=== PATIENT | female | born 1945 | race Caucasian/White ===

== ENCOUNTER 2024-06-26 17:27 | Emergency (ER) | payer MEDICARE, SELFPAY ==
--- NOTE | ~2024-06-26 | CT_ITS ---
EXAMINATION: CT brain wo con DATE: 06/26/2024 18:24 INDICATION: headache, hypertension . TECHNIQUE: Computed tomography (CT) of the head was performed without intravenous contrast. The mA wa s adjusted according to patient size. Iterative reconstruction technique was employed. The dose-lengt h product was 605.33 mGy-cm. COMPARISON: None. FINDINGS: No acute intracranial hemorrhage or extra-axial fluid collection. No hydrocephalus, mass, or herniation. No acute ischemic infarct. Unremarkable dural venous sinus attenuation. No acute osseous abnormality. The aerated spaces are clear. Mild atrophy and moderate chronic white matter change. Atherosclerotic intracranial calcification. IMPRESSION: No acute intracranial process. Reviewed, dictated and finalized at location K.
--- NOTE | ~2024-06-26 | CT_ITS ---
EXAMINATION: CTA brain carotid DATE: 06/26/2024 20:29 INDICATION: dizziness TECHNIQUE: Computed tomographic angiography (CTA) of the head was performed with 100 mL Omnipaque-350 intravenous contrast. Automated exposure control and iterative reconstruction technique were employe d. The dose-length product was 1066.09 mGy-cm. Maximum intensity projection and volume rendered 3D-r econstructions were created by the technologist on a separate workstation. COMPARISON: CT brain, same date. FINDINGS: CTA HEAD: No large vessel occlusion, aneurysm, high flow vascular malformation, nidus or extravasation. Mild ca lcification in the bilateral cavernous carotids. Narrow caliber left SANDY, when compared to the right. Mildly hypoplastic left P1 segment versus mild stenosis. Patent cerebral veins. Symmetric parenchyma l enhancement CTA NECK: Aortic arch and proximal great vessels: Bovine arch anatomy. Mild arch calcifications. Right common carotid, carotid bifurcation, and internal carotid artery: No plaque.There is 0% stenosi s of the proximal right internal carotid artery relative to normal distal artery lumen diameter (NASC ET criteria). Left common carotid, carotid bifurcation, and internal carotid artery: No plaque.There is % stenosis of the proximal left internal carotid artery relative to normal distal artery lumen diameter (NASCET criteria). Vertebral arteries: No significant plaque or stenosis. Short segment beaded appearance of the distal left vertebral artery. Similar change also noted in the left although to a lesser extent. Other findings: None. IMPRESSION: No large vessel intracranial occlusion, high-grade intracranial stenosis, or aneurysm. No carotid or vertebral artery occlusion, dissection, or significant stenosis. Mild, short segment changes of fibromuscular dysplasia in the distal bilateral vertebral arteries. Reviewed, dictated and finalized at location K. IMPRESSION: No large vessel intracranial occlusion, high-grade intracranial stenosis, or an eurysm. No carotid or vertebral artery occlusion, dissection, or significant stenosis. Mild, short segment changes of fibromuscular dysplasia in the distal bilateral vertebral arteries.
--- NOTE | ~2024-06-26 | XR_ITS ---
EXAMINATION: XR chest 2V Exam Date/Time: 06/26/2024 18:16 CDT HISTORY: dizziness Comparison: 04/08/2019. RESULT: Lines, tubes, and devices: None. Lungs and pleura: Clear. Cardiomediastinal silhouette: Stable. Other: No acute osseous or upper abdominal finding. IMPRESSION: No acute cardiopulmonary process. Reviewed, dictated and finalized at location K.
[2024-06-26 17:35] VITALS: BP 195/75; PULSE 68; RESP 21; TEMP 37; O2SAT 97
--- NOTE | 2024-06-26 17:39 | ECG_ITS ---
Test Date: 2024-06-26 17:51:50 Measurements Intervals Plover Rate: 56 P: 54 NH: 157 QRS: 23 QRSD: 74 T: 63 QT: 429 QTc: 415 Interpretive Statements SINUS BRADYCARDIA OTHERWISE NORMAL ECG No previous ECG available for comparison Electronically Signed On 06-27-2024 12:44:15 CDT by Sharath Flowers M.D.
[2024-06-26 18:04] VITALS: PULSE 56
[2024-06-26 18:11] LABS: Basophils Percent Auto 0.6 % (0.2-1.2); Eosinophils Absolute Auto 0.1 K/mm3 (0-0.3); Eosinophils Percent Auto 1.9 % (0-4.4); Hematocrit 36.3 % (37.0-47.0); Hemoglobin 11.9 g/dL (12.0-15.0); Immature Granulocyte Absolute 0.02 K/mm3 (0.00-0.031); Immature Granulocyte Percent A 0.3 % (0-0.5); Lymphocytes Absolute Auto 1.92 K/mm3 (0.9-3.2); Mean Corpuscular HGB Conc 32.8 g/dl (32-36); Mean Corpuscular Hemoglobin 31.1 pg (26-34); Mean Corpuscular Volume 94.8 fl (80-100); Mean Platelet Volume 9.5 fl (7.4-10.4); Monocytes Absolute Auto 0.7 K/mm3 (0.1-0.6); Monocytes Percent Auto 11.1 % (2.6-8.5); Neutrophils Absolute Auto 3.4 K/mm3 (1.3-6.7); Neutrophils Percent Auto 55.1 % (45.5-73.1); Platelet Count Result 233 k/mm3 (150-375); Red Blood Count 3.83 M/mm3 (4.2-5.4); Red Cell Distribution Width 13.2 % (11.5-14.5); White Blood Count 6.2 K/mm3 (4.5-10.0)
[2024-06-26 18:21] LABS: Alanine Aminotransferase 17 U/L (6-35); Albumin Level 3.7 g/dL (3.5-5.1); Alkaline Phosphatase 75 U/L (38-126); Anion Gap 6 mmol/L (4-12); Aspartate Amino Transferase 25 U/L (14-36); Bilirubin,Total 0.1 mg/dL (0.2-1.3); Blood Urea Nitrogen 37 mg/dL (7-17); Carbon Dioxide 29 mmol/L (22-30); Chloride 100 mmol/L (98-107); Estimated CRCL calculation 40 ml/min; Estimated Glomerular Filt Rate 53; Glucose 97 mg/dL (65-110); Potassium 4.1 mmol/L (3.4-5.0); Sodium 135 mmol/L (137-145)
--- NOTE | 2024-06-26 18:35 | ED.DIZZY ---
HPI - Dizziness General Chief Complaint: Dizziness Stated Complaint: dizzy, high blood pressure Time Seen by Provider: 06/26/24 17:45 Source: patient and family Mode of arrival: wheelchair Limitations: no limitations History of Present Illness HPI Narrative: This is a 78 year old female that presents to the ER for dizziness. Ongoing since yesterday. Reports feeling off balance when she walks. Reports lightheadedness. Reports tingling in her fingers bilaterally. Her daughter took her blood pressure and it was elevated at 200s systolic which concerned them and prompted her to be seen. Denies history of hypertension. Denies vision changes, vomiting, focal numbness or weakness. Related Data Allergies Allergy/AdvReac Type Severity Reaction Status Date / Time No Known Allergies Allergy Mild Unverified 07/08/09 11:18 Review of Systems Review of Systems: CONSTITUTIONAL: Denies fever EYES: Denies visual changes CARDIOVASCULAR: Denies chest pain, palpitations, or edema. RESPIRATORY: Denies dyspnea. GASTROINTESTINAL: Denies nausea, vomiting NEUROLOGIC: Reports headache. Denies numbness, or weakness. All systems reviewed & are unremarkable except as noted in HPI and below PMFSH Past Medical History Medical History (Updated 06/26/24 @ 21:56 by Sagrario Silva PA-C) History of depression History of hyperlipidemia Social History Social History (Updated 06/26/24 @ 18:40 by Sagrario Silva PA-C) Smoking status: Never smoker Exam Narrative: GENERAL: Well-appearing, well-nourished, and in no acute distress. HEAD: Normocephalic, atraumatic. EYES: PERRLA and EOMI. ENT: Nares clear, no rhinorrhea or epistaxis. Mucous membranes moist. Oropharynx without tonsillar hypertrophy exudate or other lesions. Bilateral TMs pearly carrillo non-bulging NECK: Supple. No adenopathy or masses. No JVD CHEST: Clear to auscultation. No respiratory distress. No wheezes rales or rhonchi HEART: Regular rate and rhythm. No murmur heard. Normal peripheral pulses. EXTREMITIES: Normal range of motion. No edema. Strength equal in bilateral upper and lower extremities (5/5) SKIN: Warm, dry, no rash. NEURO: No focal deficits. Alert and oriented x3. Cranial nerves 2-12 grossly intact. Normal [id number] PSYCH: Normal mood and affect Course Course Emergency Course: patient and family updated on workup. Patient reports feeling better. Is ready for discharge. reports she has been able to ambulate in the ED with a steady gait Consultations Consultation #1: spoke with neurosurgery about findings on CTA. Likely chronic in nature. She may follow-up with her PCP for this Date: 06/26/24 Vital Signs Vital signs: Vital Signs Temperature 98.6 F 06/26/24 17:35 Pulse Rate 68 06/26/24 17:35 Respiratory Rate 21 H 06/26/24 17:35 Blood Pressure 195/75 H 06/26/24 17:35 Pulse Oximetry 97 06/26/24 17:35 Oxygen Delivery Room Air 06/26/24 17:35 Temperature 98.6 F 06/26/24 17:35 Pulse Rate 58 L 06/26/24 21:06 Respiratory Rate 18 06/26/24 21:06 Blood Pressure 149/51 H 06/26/24 21:06 Pulse Oximetry 98 06/26/24 21:06 Oxygen Delivery Room Air 06/26/24 17:35 MDM - Dizziness MDM Narrative Medical decision making narrative: Patient presents to the emergency department for dizziness and lightheadedness. Ongoing since yesterday. Patient's daughter took her blood pressure and it was elevated today. Reports no known history of hypertension, although before today is unsure when the last time her blood pressure would of been checked. Blood pressure initially elevated at 195 systolic. This down trended without intervention. Blood pressure now 149/51. CBC shows mild normocytic anemia hemoglobin of 11.9. Metabolic panel without evidence of maybe some mild dehydration. Patient lightly hydrated in the ED given a dose of meclizine. Urine without evidence of infection. Chest x-ray and CT brain without acute findings. CTA of t
[2024-06-26] MEDS: SODIUM CHLORIDE 0.9% IV 500 ML 999 ML IV CONT (19:22)
[2024-06-26] MEDS: MECLIZINE HCL 25 MG TABLET PO (19:22)
[2024-06-26 19:30] VITALS: BP 168/62; PULSE 58; RESP 19; O2SAT 98
[2024-06-26 19:41] LABS: Add Urine Microscopic? YES; Appearance Urine Clear (Clear); Bacteria Urine None Seen /hpf; Bilirubin Urine Negative (Negative); Blood Urine Negative (Negative); Color Urine Yellow (Yellow); Glucose Urine UA Negative (Negative); Ketones Urine Negative (Negative); Leukocyte Esterase Ur Trace LEU/UL (Negative); Nitrate Urine Negative (Negative); Non Pathogenic Casts 0-2; Protein Urine Negative (Negative); RBC Urine 0-2 /hpf (0-2); Specific Grav Ur 1.008 (1.001-1.035); Squamous Epithelial Cell Urine None Seen /hpf (Few); Urobilinogen Urine 0.2 mg/dL (<2.0); WBC Urine 0-5 /hpf (0-3)
[2024-06-26 20:00] VITALS: BP 166/55; PULSE 55; RESP 14; O2SAT 98
[2024-06-26 21:06] VITALS: BP 149/51; PULSE 58; RESP 18; O2SAT 98
[2024-06-26 22:35] VITALS: BP 152/65; PULSE 65; RESP 17; TEMP 36.7; O2SAT 98
== END 2024-06-26 22:14 | disposition home or self-care (01) ==
PROVIDERS: Emergency Provider Physician Assistant; PCP Nurse Practitioner Family
DX: R42 Dizziness and giddiness (principal); R03.0 Elevated blood-pressure reading, without diagnosis of hypertension; I77.3 Arterial fibromuscular dysplasia; E78.5 Hyperlipidemia, unspecified; R00.1 Bradycardia, unspecified
CPT/HCPCS: 36415; 70450; 70496; 70498; 71046; 80053; 81001; 85025; 93005; 96360; 99284; A9270; J7040; Q9967